=== PATIENT | female | born 1975 | race Caucasian/White ===

== ENCOUNTER 2024-08-08 08:20 | Emergency (ER) | payer BC ==
--- OUTSIDE RECORDS SUMMARY | 2024-08-08 08:22 | XMS REPORT | Continuity of Care Document ---
Author Name Unknown Address [address] [place] [address] [address] [place], [place] [id number] [place] [address] [facility] Address [address] [facility]. [address] [place] [address] Care Team Providers Care Warehouse Administrative Assistant Name Role Phone Unavailable Unavailable Unavailable Payers Payer Name Policy Type Policy Number Effective Date Expirati on Date Source Allergies, Adverse Reactions, Alerts Allergy Name Allergy Type Status Severity Reaction(s) Onset Date Inactive Date Treating Clinician Comments Source balwinder KINNEY [place] 02-09 00:00: 00 [facility] balwinder KINNEY [place] 06-30 00:00: 00 [facility] Notes Date/Time Note Provider Source 2019-02-09 09:36:00 [id number] [place] [address] PATIENT NAME: CORAL STEPHENS ADMIT DATE: 02/09/19 ACCOUNT NO: [id number] ROOM NO: AGE: 43 REPORT TYPE: OPERATIVE REPORT SEX: F ADMITTING PHYSICIAN: ATTENDING PHYSICIAN:Victor Manuel Valdez MD OPERATION DATE: 02/09/2019 PREOPERATIVE DIAGNOSIS: Left knee meniscal tear. POSTOPERATIVE DIAGNOSES: 1. Complex tear, posterior horn of medial meniscus, left knee, S83.242A. 2. Radial tear, posterior horn of lateral meniscus, left knee, S83.282A. PROCEDURE PERFORMED: Left knee diagnostic arthroscopy with an arthroscopic partial medial and lateral meniscectomy, 26[address]. SURGEON: Victor Manuel Valdez MD ELECTRICIAN TELEPHONE: LEXI Kaur ANESTHESIA: General. TOURNIQUET TIME: Ten minutes. ESTIMATED BLOOD LOSS: None. CLINICAL INDICATIONS: Ms. Stephens is a 43-year-old female from [place], [place], who has been having progressive and severe pain involving her left knee. Catching, locking, and swelling are noted. Her symptoms have been refractory to extensive nonoperative treatment. Due to her progressive pain and lack of response to nonoperative intervention, she is admitted for diagnostic arthroscopy, meniscectomy, and possible chondroplasty. PROCEDURE IN DETAIL: LEFT KNEE DIAGNOSTIC ARTHROSCOPY WITH AN ARTHROSCOPIC PARTIAL MEDIAL AND LATERAL MENISCECTOMY, [address]478. Ms. Stephens was brought to the operative suite, at which time, she was placed in supine position on the OR table. Routine monitors were established. General anesthesia was delivered. After satisfactory induction of general anesthesia, a tourniquet was applied to the patient's left lower extremity per Ms. Catalan and the leg was placed in arthroscopic leg frey per Ms. Catalan. The leg was then elevated and exsanguinated. The tourniquet was insufflated to 300 mmHg. Left knee was then circumferentially prepped and draped in the usual sterile fashion. Per Ms. Catalan, anterior arthroscopic portals were established. Systematic arthroscopic evaluation was performed. Patellofemoral evaluation was within normal limits. The medial gutter was unremarkable. The medial compartment revealed a complex tear involving the posterior horn of medial meniscus. This PATIENT NAME: CORAL STEPHENS was resected to a stable rim utilizing hand and motorized instrumentation. No chondral pathology was noted. The femoral notch demonstrated an intact anterior as well as posterior cruciate ligament. The lateral compartment revealed a radial tear involving the posterior horn of the lateral meniscus. This was excised to a stable rim utilizing hand and motorized instrumentation. No articular cartilage lesions were noted. The popliteal recess revealed no loose bodies. Thorough lavage was performed with lactated Ringer solution. Arthroscopic portals were closed respectively with a subcuticular 4-0 Vicryl suture per Ms. Catalan. Sterile dressing was applied by Ms. Catalan. The patient was then extubated and taken to the recovery room awake and alert without any anesthetic or operative complications. At the end of the case, sponge and needle counts were correct x2. During the procedure, Ms. Catalan was invaluable in preparation and draping of the extremity along with providing surgical exposure, which greatly expedited the performance of the procedure as well as protection of the neurovascular structures. Finally, she was responsible for closure of the postoperative incision and application of postoperative dressing. Dictated By: Victor Manuel Valdez MD WT: OP:ALISIA/YORDAN/MAYLIN Conf#: [id number]/DID#: [id number] Authenticated by Victor Manuel Valdez MD On 02/09/2019 01:51:07 PM at 1351 PATIENT NAME: CORAL STEPHENS [facility] 2019-02-09 09:24:00 [facility] Brief Op Note REPORT#:[id number] REPORT STATUS: Signed DATE:02/09/19 TIME: 923 PATIENT: CORAL STEPHENS UNIT #: [id number] ROOM/BED: : 73 AGE: 43 SEX: F ATTEND: Victor Manuel Valdez MD ADM AUTHOR: Victor Manuel Valdez MD * ALL edits or amendments must be made on the electronic/computer document * Op/Inv Proc Note - Brief Pre-procedure diagnosis: LEFT KNEE MENISUXC TER Post-procedure diagnosis: same as pre procedure dx Procedures performed: LEFT KNEE ARTHROSCOPIC PARTIAL MEDUIAL AND LATERAL MENISECTONY Primary Surgeon: DR AMBROSIO Lining Marker(s): DILIP CATALAN Findings: Portions of this note were transcribed by a Scribe. I, personally performed the history, physical exam and medical decision making; and confirmed the accuracy of the information in the transcribed note. Complications: none Estimated blood loss in ml's: none Specimens removed/altered: none Portions of this section were scribed by Dilip Willoughby on 02/09/19 at 0924 at 1053 RPT #:[id number] END OF REPORT [facility] 2019-02-07 16:47:00 [id number] [facility] [address] [place], [place] [address] PATIENT NAME: CORAL STEPHENS ADMIT DATE: ACCOUNT NO: [id number] ROOM NO: AGE: 43 REPORT TYPE: HISTORY AND PHYSICAL SEX: F ADMITTING PHYSICIAN: ATTENDING PHYSICIAN:Vitcor Manuel Valdez MD ADMISSION DATE: 02/09/2019 ADMITTING DIAGNOSIS: Left knee meniscal tear. HISTORY OF PRESENT ILLNESS: Ms. 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 Her symptoms have been occurring on a daily basis. Her symptoms are refractory to extensive nonoperative treatment. Her clinical as well as radiographic evaluation revealed symptomatic meniscal tear. Due to her progressive pain and lack of response to nonoperative intervention, Ms. Stephens is admitted for arthroscopic meniscectomy and possible chondroplasty. PAST MEDICAL HISTORY: Renal stones, urinary tract infection. PAST SURGICAL HISTORY: Previous surgeries include carpal tunnel release, complete hysterectomy, Chiari decompression for Chiari malformation. FAMILY HISTORY: Diabetes, hypertension, and cerebrovascular disease. SOCIAL HISTORY: She is . She does sedentary work. She does not smoke nor does she drink. MEDICATIONS: Consist of Seroquel. ALLERGIES: NO ALLERGIES ARE LISTED. REVIEW OF SYSTEMS: Negative. PHYSICAL EVALUATION: VITAL SIGNS: 5 feet 7 inches tall, 63.6 kilograms. HEENT: Within normal limits. CARDIAC: Regular rate and rhythm. No murmur. CHEST: Clear. ABDOMEN: Benign. BACK: No CVA tenderness. PERTINENT ORTHOPEDIC EVALUATION: Leg lengths were equal. Full painless motion of both hips. Examination of the left knee reveals an antalgic gait. She has a positive effusion. She has 3 to 120 degrees of motion. She has significant pain along the joint line with a positive Dena's sign. Her distal neurovascular status is intact. PATIENT NAME: CORAL STEPHENS DIAGNOSTIC DATA: Radiographic evaluation is within normal limits. MRI evaluation of the left knee demonstrates chondral lesion involving the medial joint line with a large posterior horn tear of the medial meniscus. She also has a Mckenna cyst. ASSESSMENT: Symptomatic meniscal tear left knee with associated chondromalacia and Mckenna cyst. SURGICAL PLAN: Arthroscopic meniscectomy, chondroplasty, possible articular cartilage biopsy. I have gone over at length with Ms. Stephens the associated risks involved with this procedure. She understands these include but are not limited to bleeding, infection, neurovascular damage, persistent pain, loss of motion, need for further operative intervention, posttraumatic arthritis, deep vein thrombosis leading to pulmonary emboli along with complications secondary to anesthesia. Ms. Stephens further understands that there are absolutely no guarantees or warranties that she will be pain free after the procedure. She accepts these risks and gives her informed consent to proceed. Dictated By: Victor Manuel Valdez MD WT: HP:ALISIA/YORDAN/MAYLIN Conf#: [id number]/DID#: [id number] Authenticated by Victor Manuel Valdez MD On 02/08/2019 06:48:34 AM at 0648 PATIENT NAME: CORAL STEPHENS [facility]
[2024-08-08] MEDS ORDERED: HYDROCODONE/APAP 10/325 TAB ONE (08:31)
--- NOTE | 2024-08-08 09:35 | RAD REPORT ---
EXAMINATION: XR LEFT ELBOW CLINICAL INDICATION: Female, 49 years old. PAIN TECHNIQUE: Multiple views of the left elbow were obtained. COMPARISON: No prior exam. FINDINGS: Mildly displaced olecranon fracture is present. Moderate elbow joint effusion. No dislocati on.
--- NOTE | 2024-08-08 10:26 | ER ---
Nurse's Notes [facility] Name: Romero Gorman Age: 49 yrs Sex: Female : 1975 Arrival Date: 08/08/2024 Time: 08:20 Bed 11 Private MD: Diagnosis: Displaced fracture of olecranon process with intraarticular extension of left ulna, initial encounter for closed fracture Presentation: 08/08 08:31 Chief complaint: Patient states: tripped and fell this morning while taking out trash ss landing on knees and elbow. Pt c/o severe L elbow pain. Coronavirus screen: Client denies travel out of the [place] in the last 14 days. Ebola Screen: Patient denies exposure to infectious person. Patient denies travel to an Ebola-affected area in the 21 days before illness onset. Initial Sepsis Screen: Does the patient meet any 2 criteria? No. Patient's initial sepsis screen is negative. Does the patient have a suspected source of infection? No. Patient's initial sepsis screen is negative. Risk Assessment: Do you want to hurt yourself or someone else? Patient reports no desire to harm self or others. Onset of symptoms was August 08, 2024. 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 - Infectious Disease History:: Denies. - Social history:: Smoking status: Reported history of juuling and/or vaping. Screenin:31 Abuse screen: Denies threats or abuse. Denies injuries from another. Nutritional ss screening: No deficits noted. Tuberculosis screening: Never had TB. Assessment: 08:31 General: Appears uncomfortable, Behavior is calm, cooperative. Pain: Complains of pain ss in L elbow Pain currently is 10 out of 10 on a pain scale. Quality of pain is described as aching, tender, throbbing, Pain began suddenly, Is continuous. Neuro: Level of Consciousness is awake, alert, obeys commands, Oriented to person, place, time, situation, Appraiser are equal bilaterally. Respiratory: Airway is patent Respiratory effort is even, unlabored, Respiratory pattern is regular, symmetrical. Derm: Skin is pink, warm \T\ dry. normal. Musculoskeletal: Circulation, motion, and sensation intact. Range of motion: limited in left elbow Swelling present in L elbow. 10:40 Reassessment: Patient appears in no apparent distress at this time. Patient and/or ss family updated on plan of care and expected duration. Pain level reassessed. Patient is alert, oriented x 3, equal unlabored respirations, skin warm/dry/pink. Patient states feeling better. Patient states symptoms have improved. Vital Signs: 08:31 BP 141 / 97; Pulse 87; Resp 17; Temp 98.3(TE); Pulse Ox 100% ; Weight 79.38 kg; Height ss 5 ft. 7 in. ; Pain 8/10; 08:31 Body Mass Index 27.41 (79.38 kg, 170.18 cm) ss 08:31 Pain Scale: Adult ss ED Course: 08:23 Patient arrived in ED. cj3 08:30 Juan Alberto Sen DO is Attending Physician. ms3 08:31 Patient has correct armband on for positive identification. ss 08:33 Triage completed. ss 08:33 Arm band placed on right wrist. ss 09:09 XRAY Elbow LEFT 3 view In Process Unspecified. EDMS 09:36 Roseanne Holland, PORTER is Primary Nurse. ss 10:25 Rio Berry MD is Referral Physician. ms3 10:39 No provider procedures requiring assistance completed. Patient did not have IV access ss during this emergency room visit. Orthoglass splint: posterior long arm splint applied to the left arm. Sling applied to left arm. Administered Medications: 08:44 Drug: Kensett PO 10 mg-325 mg 1 tabs PO once Route: PO; ss 10:39 Follow up: Response: No adverse reaction; Pain is decreased; RASS: Alert and Calm (0) ss Medication: 08:31 VIS not applicable for this client. ss Outcome: 10:25 Discharge ordered by . ms3 10:39 Discharged to home ambulatory, ss 10:39 Condition: improved 10:39 Discharge instructions given to patient, family, Instructed on discharge instructions, follow up and referral plans. Demonstrated understanding of instructions, follow-up care, 10:40 Patient left the ED. ss Signatures: Dispatcher [employer] Roseanne Anaya RN RN Juan Alberto Prince DO DO ms3 Yvette Coe cj3
--- NOTE | 2024-08-08 10:26 | EDPHYS ---
Physician Documentation [facility] Name: Romero Gorman Age: 49 yrs Sex: Female : 1975 Arrival Date: 08/08/2024 Time: 08:20 Bed 11 Private MD: ED Physician Juan Alberto Sen HPI: 08/08 08:50 This 49 yrs old Female presents to ER via Ambulatory with complaints of Elbow Injury. ms3 08:50 49-year-old female with no past medical history presents to the past medical history of ms3 asthma presents to the emergency department for left elbow pain after falling while walking on her driveway and hitting it on cement. Patient states her pain is a 2/10 while sitting and increases to an 8/10 with movement of her left elbow. She denies any alleviating factors.. 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 - Infectious Disease History:: Denies. - Social history:: Smoking status: Reported history of juuling and/or vaping. ROS: 08:50 Constitutional: Negative for fever, and chills. Cardiovascular: Negative for chest ms3 pain, and palpitations. Respiratory: Negative for shortness of breath, cough, wheezing, and pleuritic chest pain, Abdomen/GI: Negative for abdominal pain, nausea, vomiting, diarrhea, and constipation, 08:50 MS/extremity: Positive for pain, of the Left elbow, Exam: 08:50 Constitutional: This is a well developed, well nourished patient who is awake, alert, ms3 and in no acute distress. Cardiovascular: Regular rate and rhythm with a normal S1 and S2. No gallops, murmurs, or rubs. Normal PMI, no JVD. No pulse deficits. Respiratory: Lungs have equal breath sounds bilaterally, clear to auscultation and percussion. No rales, rhonchi or wheezes noted. No increased work of breathing, no retractions or nasal flaring. Abdomen/GI: Soft, non-tender, with normal bowel sounds. No distension or tympany. No guarding or rebound. No evidence of tenderness throughout. Skin: Warm, dry with normal turgor. Normal color with no rashes, no lesions, and no evidence of cellulitis. 08:50 Musculoskeletal/extremity: Extremities: noted in the Left elbow: pain, swelling, tenderness, Vital Signs: 08:31 BP 141 / 97; Pulse 87; Resp 17; Temp 98.3(TE); Pulse Ox 100% ; Weight 79.38 kg; Height ss 5 ft. 7 in. ; Pain 8/10; 08:31 Body Mass Index 27.41 (79.38 kg, 170.18 cm) ss 08:31 Pain Scale: Adult ss MDM: 08:40 Medical Screening Exam initiated ms3 08:50 Differential diagnosis: dislocation, closed fracture, contusion. ms3 15:50 Data reviewed: vital signs, nurses notes, radiologic studies, and as a result, I will ms3 discharge patient. I considered the following discharge prescriptions or medication management in the emergency department Medications were administered in the Emergency Department. See MAR. Special discussion: I discussed with the patient/guardian in detail that at this point there is no indication for admission to the hospital. It is understood, however, that if the symptoms persist or worsen the patient needs to return immediately for re-evaluation. ED course: Discussed fracture and necessity to follow-up with orthopedics with patient. On reevaluation patient is alert and orient x 4, no apparent distress, nontoxic-appearing, no signs of compartment syndrome present. Patient to follow-up Dr. Berry in 2 to 3 days. Patient understands agrees with plan. All questions were answered. Return precautions discussed include worsening symptoms, or any other concerns.. 16:01 Independent interpretation of the following test(s) in the Emergency Department X-Ray: ms3 My interpretation is Left elbow x-ray images reviewed by me showed olecranon fracture with displacement.. 08/08 08:34 Order name: XRAY Elbow LEFT 3 view; Complete Time: 09:42 ss 08/08 08:44 Order name: Sling; Complete Time: 08:44 ss 08/08 09:42 Order name: Posterior Elbow Splint; Complete Time: 10:39 ms3 Administered Medications: 08:44 Drug: Archbold PO 10 mg-325 mg 1 tabs PO once Route: PO; ss 10:39 Follow up: Response: No adverse reaction; Pain is decreased; RASS: Alert and Calm (0) ss Disposition Summary: 08/08/24 10:25 Discharge Ordered Notes: Location: Home ms3 Condition: Stable ms3 Diagnosis - Displaced fracture of olecranon process with intraarticular extension of left ulna, ms3 initial encounter for closed fracture Followup: ms3 - With: Rio Berry MD - When: 2 - 3 days - Reason: Recheck today's complaints Discharge Instructions: - Discharge Summary Sheet ms3 - Olecranon Fracture ms3 Forms: - Medication Reconciliation Form ms3 - Antibiotic Education ms3 - Prescription Opioid Use ms3 - Patient Portal Instructions ms3 - Leadership Thank You Letter ms3 Prescriptions: - Tylenol #3 - take 1 tablet ORAL route every 6 hours; 12 tablet; Refills: 0, Product ms3 Selection Permitted Signatures: Dispatcher [employer] Roseanne Anaya RN RN ss Juan Alberto Sen DO DO ms3 Corrections: (The following items were deleted from the chart) 08:35 08:35 Elbow Left 3 View+RAD.RAD.BRZ ordered. EDMS EDMS
[2024-08-08 10:47] VITALS: BP 141/97; TEMP 98.3; O2SAT 100
== END 2024-08-08 10:40 | disposition home or self-care (01) ==
LOC: MERGE 08:20 → ER 08:20
PROC: 2W3MX1Z Immobilization of Left Lower Extremity using Splint (ICD-10-PCS; principal; 2024-08-08)
DX: S52.032A Displaced fracture of olecranon process with intraarticular extension of left ulna, initial encounter for closed fracture (principal); W18.30XA Fall on same level, unspecified, initial encounter